=== PATIENT | male | born 1960 | race Caucasian/White ===

== ENCOUNTER → 2023-11-06 | Outpatient (CLI) | payer MEDICARE, MEDICAID, SELFPAY | END | disposition home or self-care (01) | LOC: SWHD 13:49 | PROVIDERS: PCP Family Medicine; Referring Provider Family Medicine; Visit Provider Student in an Organized Health Care Education/Training Program | DX: L89.214 Pressure ulcer of right hip, stage 4 (principal); B96.5 Pseudomonas (aeruginosa) (mallei) (pseudomallei) as the cause of diseases classified elsewhere; K52.9 Noninfective gastroenteritis and colitis, unspecified; L03.90 Cellulitis, unspecified; M86.9 Osteomyelitis, unspecified; G82.20 Paraplegia, unspecified | CPT/HCPCS: 11044 ==

== ENCOUNTER → 2023-11-27 | Outpatient (CLI) | payer MEDICARE, MEDICAID, SELFPAY | END | disposition home or self-care (01) | LOC: SWHD 12:58 | PROVIDERS: PCP Family Medicine; Referring Provider Family Medicine; Visit Provider Student in an Organized Health Care Education/Training Program | DX: L89.214 Pressure ulcer of right hip, stage 4 (principal); B96.5 Pseudomonas (aeruginosa) (mallei) (pseudomallei) as the cause of diseases classified elsewhere; K52.9 Noninfective gastroenteritis and colitis, unspecified; L03.90 Cellulitis, unspecified; M86.9 Osteomyelitis, unspecified; G82.20 Paraplegia, unspecified | CPT/HCPCS: 11042 ==

== ENCOUNTER → 2024-01-14 | Outpatient (CLI) | payer MEDICARE, MEDICAID, SELFPAY ==
[2024-01-14 12:05] LABS: Collection Type, Urine Clean Catch; Squamous Epithelial Cell,Urine 0 /hpf (0-5)
[2024-01-14 13:42] LABS: Bacteria,Urine 2+; Bilirubin,Urine Negative (Negative); Blood,Urine 3+ (Negative); Glucose, Urine Negative (Negative); Ketones,Urine Negative (Negative); Leukocyte Esterase,Urine Positive (Negative); Nitrite,Urine Positive (Negative); Protein,Urine 2+ (Neg - Trace); RBC,Urine 37 /hpf (0-3); Specific Gravity,Urine 1.008 (1.001-1.035); Urobilinogen,Urine Negative mg/dL (0.0-1.0); WBC,Urine 715 /hpf (0-5)
[2024-01-14 13:48] LABS: Clarity,Urine Cloudy (Clear/Hazy); Color,Urine Lt Yellow (Lt Yel-Yel); Culture Indicated,Urine Yes
== END | disposition home or self-care (01) ==
LOC: SLDO 11:37
PROVIDERS: PCP Family Medicine; Referring Provider Family Medicine; Visit Provider Family Medicine
DX: N39.0 Urinary tract infection, site not specified (principal)
CPT/HCPCS: 81001; 87077; 87086; 87186

== ENCOUNTER → 2024-01-20 | Outpatient (CLI) | payer MEDICARE, MEDICAID, SELFPAY | END | disposition home or self-care (01) | LOC: SWHD 14:06 | PROVIDERS: PCP Family Medicine; Referring Provider Family Medicine; Visit Provider Student in an Organized Health Care Education/Training Program | DX: L89.214 Pressure ulcer of right hip, stage 4 (principal); K52.9 Noninfective gastroenteritis and colitis, unspecified; L03.90 Cellulitis, unspecified; M86.9 Osteomyelitis, unspecified; G82.20 Paraplegia, unspecified | CPT/HCPCS: 11042 ==

== ENCOUNTER → 2024-02-12 | Outpatient (CLI) | payer MEDICARE, MEDICAID, SELFPAY | END | disposition home or self-care (01) | LOC: SWHD 13:17 | PROVIDERS: PCP Family Medicine; Referring Provider Family Medicine; Visit Provider Student in an Organized Health Care Education/Training Program | DX: L89.214 Pressure ulcer of right hip, stage 4 (principal); K52.9 Noninfective gastroenteritis and colitis, unspecified; L03.90 Cellulitis, unspecified; M86.9 Osteomyelitis, unspecified; G82.20 Paraplegia, unspecified | CPT/HCPCS: 97597 ==

== ENCOUNTER → 2024-02-26 | Outpatient (CLI) | payer MEDICARE, MEDICAID, SELFPAY | END | disposition home or self-care (01) | LOC: SWHD 14:23 | PROVIDERS: PCP Family Medicine; Referring Provider Family Medicine; Visit Provider Student in an Organized Health Care Education/Training Program | DX: L89.214 Pressure ulcer of right hip, stage 4 (principal); K52.9 Noninfective gastroenteritis and colitis, unspecified; L03.90 Cellulitis, unspecified; M86.9 Osteomyelitis, unspecified; G82.20 Paraplegia, unspecified | CPT/HCPCS: 11042; A9270 ==

== ENCOUNTER → 2024-03-04 | Outpatient (CLI) | payer MEDICARE, MEDICAID, SELFPAY | END | disposition home or self-care (01) | LOC: SWHD 14:54 | PROVIDERS: PCP Family Medicine; Referring Provider Family Medicine; Visit Provider Surgery | DX: L89.214 Pressure ulcer of right hip, stage 4 (principal); K52.9 Noninfective gastroenteritis and colitis, unspecified; L03.90 Cellulitis, unspecified; M86.9 Osteomyelitis, unspecified; G82.20 Paraplegia, unspecified | CPT/HCPCS: 99213; G0463 ==

== ENCOUNTER → 2024-03-18 | Outpatient (CLI) | payer MEDICARE, MEDICAID, SELFPAY | END | disposition home or self-care (01) | PROVIDERS: PCP Family Medicine; Referring Provider Family Medicine; Visit Provider Student in an Organized Health Care Education/Training Program | DX: L89.214 Pressure ulcer of right hip, stage 4 (principal); K52.9 Noninfective gastroenteritis and colitis, unspecified; L03.90 Cellulitis, unspecified; M86.9 Osteomyelitis, unspecified; G82.20 Paraplegia, unspecified | CPT/HCPCS: 11042 ==

== ENCOUNTER → 2024-04-01 | Outpatient (CLI) | payer MEDICARE, MEDICAID, SELFPAY | END | disposition home or self-care (01) | LOC: SWHD 13:02 | PROVIDERS: PCP Family Medicine; Referring Provider Family Medicine; Visit Provider Student in an Organized Health Care Education/Training Program | DX: L89.214 Pressure ulcer of right hip, stage 4 (principal); K52.9 Noninfective gastroenteritis and colitis, unspecified; L03.90 Cellulitis, unspecified; M86.9 Osteomyelitis, unspecified; G82.20 Paraplegia, unspecified | CPT/HCPCS: 11042 ==

== ENCOUNTER → 2024-04-29 | Outpatient (CLI) | payer MEDICARE, MEDICAID, SELFPAY | END | disposition home or self-care (01) | LOC: SWHD 12:43 | PROVIDERS: PCP Family Medicine; Referring Provider Family Medicine; Visit Provider Student in an Organized Health Care Education/Training Program | DX: L89.214 Pressure ulcer of right hip, stage 4 (principal); K52.9 Noninfective gastroenteritis and colitis, unspecified; L03.90 Cellulitis, unspecified; M86.9 Osteomyelitis, unspecified; G82.20 Paraplegia, unspecified | CPT/HCPCS: 99213; G0463 ==

== ENCOUNTER → 2024-05-13 | Outpatient (CLI) | payer MEDICARE, MEDICAID, SELFPAY | END | disposition home or self-care (01) | LOC: SWHD 12:51 | PROVIDERS: PCP Family Medicine; Referring Provider Family Medicine; Visit Provider Student in an Organized Health Care Education/Training Program | DX: L89.214 Pressure ulcer of right hip, stage 4 (principal); K52.9 Noninfective gastroenteritis and colitis, unspecified; L03.90 Cellulitis, unspecified; M86.9 Osteomyelitis, unspecified; G82.20 Paraplegia, unspecified | CPT/HCPCS: 11042 ==

== ENCOUNTER → 2024-05-28 | Outpatient (CLI) | payer MEDICARE, MEDICAID, SELFPAY | END | disposition home or self-care (01) | LOC: SWHD 14:24 | PROVIDERS: PCP Family Medicine; Referring Provider Family Medicine; Visit Provider Student in an Organized Health Care Education/Training Program | DX: L89.214 Pressure ulcer of right hip, stage 4 (principal); K52.9 Noninfective gastroenteritis and colitis, unspecified; L03.90 Cellulitis, unspecified; M86.9 Osteomyelitis, unspecified; G82.20 Paraplegia, unspecified | CPT/HCPCS: 11042; A9270 ==

== ENCOUNTER → 2024-06-03 | Outpatient (CLI) | payer MEDICARE, MEDICAID, SELFPAY | END | disposition home or self-care (01) | LOC: SWHD 12:39 | PROVIDERS: PCP Family Medicine; Referring Provider Family Medicine; Visit Provider Student in an Organized Health Care Education/Training Program | DX: L89.214 Pressure ulcer of right hip, stage 4 (principal); K52.9 Noninfective gastroenteritis and colitis, unspecified; L03.90 Cellulitis, unspecified; M86.9 Osteomyelitis, unspecified; G82.20 Paraplegia, unspecified | CPT/HCPCS: 11042 ==

== ENCOUNTER → 2024-06-17 | Outpatient (CLI) | payer MEDICARE, MEDICAID, SELFPAY | END | disposition home or self-care (01) | LOC: SWHD 13:17 | PROVIDERS: PCP Family Medicine; Referring Provider Family Medicine; Visit Provider Surgery | DX: L89.214 Pressure ulcer of right hip, stage 4 (principal); R06.00 Dyspnea, unspecified; G82.50 Quadriplegia, unspecified | CPT/HCPCS: 11042 ==

== ENCOUNTER → 2024-07-08 | Outpatient (CLI) | payer MEDICARE, MEDICAID, SELFPAY | END | disposition home or self-care (01) | LOC: SWHD 13:23 | PROVIDERS: PCP Family Medicine; Referring Provider Family Medicine; Visit Provider Student in an Organized Health Care Education/Training Program | DX: L89.214 Pressure ulcer of right hip, stage 4 (principal); R06.00 Dyspnea, unspecified; G82.50 Quadriplegia, unspecified | CPT/HCPCS: 11042 ==

== ENCOUNTER → 2024-08-10 | Outpatient (CLI) | payer MEDICARE, MEDICAID, SELFPAY | END | disposition home or self-care (01) | LOC: SWHD 14:21 | PROVIDERS: PCP Family Medicine; Referring Provider Family Medicine; Visit Provider Student in an Organized Health Care Education/Training Program | DX: L89.214 Pressure ulcer of right hip, stage 4 (principal); R06.00 Dyspnea, unspecified; G82.50 Quadriplegia, unspecified | CPT/HCPCS: 11042 ==

== ENCOUNTER → 2024-11-10 | Outpatient (CLI) | payer MEDICARE, MEDICAID, SELFPAY ==
[2024-11-10 13:12] LABS: Collection Type, Urine Clean Catch; Squamous Epithelial Cell,Urine 0 /hpf (0-5)
[2024-11-10 14:00] LABS: Bacteria,Urine Rare; Bilirubin,Urine Negative (Negative); Blood,Urine Trace (Negative); Clarity,Urine Clear (Clear/Hazy); Color,Urine Drk-Yellow (Lt Yel-Yel); Glucose, Urine Negative (Negative); Ketones,Urine Negative (Negative); Leukocyte Esterase,Urine Positive (Negative); Nitrite,Urine Negative (Negative); PH,Urine 6.5 (5.0-7.0); Protein,Urine Negative (Neg - Trace); RBC,Urine 2 /hpf (0-3); Specific Gravity,Urine 1.008 (1.001-1.035); Urobilinogen,Urine Negative mg/dL (0.0-1.0); WBC,Urine 17 /hpf (0-5)
[2024-11-10 14:01] LABS: Culture Indicated,Urine Yes
== END | disposition home or self-care (01) ==
LOC: SLDO 13:04
PROVIDERS: PCP Family Medicine; Referring Provider Family Medicine; Visit Provider Family Medicine
DX: N39.0 Urinary tract infection, site not specified (principal)
CPT/HCPCS: 81001; 87077; 87086